=== PATIENT | female | born 1980 | race Two or more races ===

== ENCOUNTER 2020-12-23 09:30 | Day surgery (SDC) | payer OTHER | END 2020-12-23 14:50 | disposition home or self-care (01) | LOC: AMB-ENDOS 09:30 | PROVIDERS: ATTEND Surgery | DX: D12.5 Benign neoplasm of sigmoid colon (principal); K64.8 Other hemorrhoids; Z20.822 Contact with and (suspected) exposure to COVID-19 ==

== ENCOUNTER 2021-03-06 13:44 | Outpatient (CLI) | payer OTHER | END 2021-03-06 14:41 | disposition home or self-care (01) | LOC: SONOGRAMA 13:44 | PROVIDERS: ATTEND Surgery | DX: D24.2 Benign neoplasm of left breast (principal); N60.11 Diffuse cystic mastopathy of right breast; N60.12 Diffuse cystic mastopathy of left breast; R92.0 Mammographic microcalcification found on diagnostic imaging of breast ==